=== PATIENT | female | born 1955 | race Hispanic/Latino ===

== ENCOUNTER → 2021-01-19 | Outpatient (CLI) | payer MEDICARE | END | disposition home or self-care (01) | LOC: RAH 08:24 | PROVIDERS: ATTEND Internal Medicine | DX: G31.9 Degenerative disease of nervous system, unspecified (principal) | CPT/HCPCS: 70450 ==

== ENCOUNTER → 2021-05-09 | Outpatient (CLI) | payer MEDICARE | END | disposition home or self-care (01) | LOC: RAH 12:40 | PROVIDERS: ATTEND Nurse Practitioner Family | DX: R22.1 Localized swelling, mass and lump, neck (principal) | CPT/HCPCS: 76536 ==

== ENCOUNTER → 2021-06-27 | Outpatient (CLI) | payer MEDICARE | END | disposition home or self-care (01) | LOC: RAH 13:42 | PROVIDERS: ATTEND Internal Medicine | DX: R22.1 Localized swelling, mass and lump, neck (principal) | CPT/HCPCS: 76536 ==

== ENCOUNTER → 2024-01-02 | Outpatient (CLI) | payer MEDICARE ==
[~2024-01-02] VITALS: Ht 165.1 cm; Wt 85.8 kg
[~2024-01-02] MED LIST: ACET-2521 PO; ATOR20TA65 PO; LISI2.5T13 PO; SEMA1PEN3 SQ; ceFAZolin SODIUM 2 GM VIAL IVPB SCH
[2024-01-02 11:23] VITALS: BP 127/73; PULSE 78; RESP 15; TEMP 98.1
[2024-01-02 11:30] LABS: BASOPHILS # (AUTO) 0.04 K/uL (0.00-0.20); BASOPHILS % (AUTO) 0.5 % (0.0-5.0); EOSINOPHILS # (AUTO) 0.26 K/uL (0.00-0.70); EOSINOPHILS % (AUTO) 3.5 % (0.0-8.0); IMMATURE GRANULOCYTE ABSOLUTE 0.02 K/uL (0-1); LYMPHOCYTES # (AUTO) 1.3 K/uL (1.0-4.8); MEAN CORPUSCULAR HEMOGLOBIN 29.4 pg (27.0-33.0); MEAN CORPUSCULAR HGB CONC 32.3 g/dL (32.0-36.0); MEAN CORPUSCULAR VOLUME 91.1 fL (79-99); MONOCYTES # (AUTO) 0.4 K/uL (0.1-1.0); MONOCYTES % (AUTO) 5.3 % (3.0-13.0); NEUTROPHILS # (AUTO) 5.3 K/uL (1.8-7.7); NEUTROPHILS % (AUTO) 72.4 % (40.0-77.0); PLATELET COUNT (AUTO) 202 K/uL (130-400); RED BLOOD CELL COUNT(AUTO) 4.28 MIL/uL (4.00-5.50); RED CELL DISTRIBUTION WIDTH 13.3 % (11.0-15.5); WHITE BLOOD COUNT (AUTO) 7.3 K/uL (4.8-10.8)
[2024-01-02 12:26] LABS: ADD UA MICROSCOPIC YES; APPEARANCE,URINE CLEAR (CLEAR); BILIRUBIN,URINE NEGATIVE (NEGATIVE); COLOR,URINE YELLOW (YELLOW); GLUCOSE, URINE (UA) 30 mg/dL (NEGATIVE); KETONES,URINE 5 mg/dL (NEGATIVE); LEUKOCYTE ESTERASE ,URINE 75 Leu/uL (NEGATIVE); NITRATE,URINE NEGATIVE (NEGATIVE); OCCULT BLOOD,URINE NEGATIVE (NEGATIVE); PH,URINE 5.5 (5.0-8.0); PROTEIN,URINE 20 mg/dL (NEGATIVE)
[2024-01-02 12:37] LABS: BACTERIA,URINE FEW /HPF (None Seen); MUCUS,URINE RARE LPF (None Seen); SQUAMOUS EPITHELIAL CELL,UR MOD /HPF (0-2)
== END | disposition home or self-care (01) ==
LOC: DAH 10:00 → EDSTATUS 14:00
PROVIDERS: ATTEND Student in an Organized Health Care Education/Training Program
DX: Z01.812 Encounter for preprocedural laboratory examination (principal); Z01.818 Encounter for other preprocedural examination; M17.0 Bilateral primary osteoarthritis of knee; M25.562 Pain in left knee; R26.89 Other abnormalities of gait and mobility; G89.29 Other chronic pain; M24.561 Contracture, right knee; M24.562 Contracture, left knee; I10 Essential (primary) hypertension; E11.9 Type 2 diabetes mellitus without complications; E78.5 Hyperlipidemia, unspecified; Z88.8 Allergy status to other drugs, medicaments and biological substances; Z90.710 Acquired absence of both cervix and uterus; Z79.899 Other long term (current) drug therapy; Z53.8 Procedure and treatment not carried out for other reasons
CPT/HCPCS: 36415; 81001; 84134; 85025; 86140; 87086; 87186; 87641

== ENCOUNTER 2024-03-05 05:51 | Observation (INO) | payer MEDICARE ==
--- NOTE | 2024-02-29 09:48 | EKG ---
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
[2024-02-29 09:58] VITALS: BP 162/67; PULSE 67; RESP 17; TEMP 97.5
[2024-02-29 10:17] LABS: BASOPHILS # (AUTO) 0.07 K/uL (0.00-0.20); EOSINOPHILS # (AUTO) 1.12 K/uL (0.00-0.70); EOSINOPHILS % (AUTO) 16.6 % (0.0-8.0); HEMATOCRIT 39.7 % (36-48); IMMATURE GRANULOCYTE ABSOLUTE 0.03 K/uL (0-1); LYMPHOCYTES % (AUTO) 30.2 % (21.0-51.0); MEAN CORPUSCULAR HEMOGLOBIN 29.1 pg (27.0-33.0); MEAN CORPUSCULAR HGB CONC 32.5 g/dL (32.0-36.0); MEAN CORPUSCULAR VOLUME 89.4 fL (79-99); MONOCYTES # (AUTO) 0.3 K/uL (0.1-1.0); NEUTROPHILS # (AUTO) 3.2 K/uL (1.8-7.7); NEUTROPHILS % (AUTO) 46.8 % (40.0-77.0); PLATELET COUNT (AUTO) 194 K/uL (130-400); RED BLOOD CELL COUNT(AUTO) 4.44 MIL/uL (4.00-5.50); RED CELL DISTRIBUTION WIDTH 13.1 % (11.0-15.5); WHITE BLOOD COUNT (AUTO) 6.8 K/uL (4.8-10.8)
[2024-02-29 10:31] LABS: ALBUMIN 3.3 g/dL (3.5-5.0); CREATININE 0.7 mg/dL (0.5-1.0)
[2024-02-29 10:40] LABS: APPEARANCE,URINE CLEAR (CLEAR); BILIRUBIN,URINE NEGATIVE (NEGATIVE); COLOR,URINE LIGHT-YELLOW (YELLOW); GLUCOSE, URINE (UA) NEGATIVE (NEGATIVE); KETONES,URINE NEGATIVE (NEGATIVE); LEUKOCYTE ESTERASE ,URINE NEGATIVE Leu/uL (NEGATIVE); NITRATE,URINE NEGATIVE (NEGATIVE); OCCULT BLOOD,URINE NEGATIVE (NEGATIVE); PROTEIN,URINE NEGATIVE (NEGATIVE); UROBILINOGEN,URINE 0.2 mg/dL (0.2-1.0)
[2024-02-29 10:45] LABS: INR <= 0.93 (0.85-1.15); PROTHROMBIN TIME 10.4 SEC (9.6-11.6)
[2024-02-29 10:46] LABS: PARTIAL THROMBOPLASTIN TIME 28.8 SEC (26.3-35.5)
[2024-02-29 10:53] LABS: ADD UA MICROSCOPIC NO
--- NOTE | 2024-03-03 13:59 | NUR ---
RE: EKG REPORTED EKG RESULTS TO DR ORTIZ, NO NEW ORDERS RECEIVED.
--- NOTE | 2024-03-03 15:56 | NUR ---
RE: LABS REPORTED URINE SENSITIVITY RESULTS TO DR NOGUERA, NO NEW ORDERS RECEIVED.
[~2024-03-05] VITALS: Ht 167.6 cm; Wt 86.1 kg
[2024-03-05] VITALS (23 sets, daily range): BP systolic 103–146; BP diastolic 50–74; PULSE 51–82; RESP 13–19; TEMP 96.9–97.9; O2SAT 100
[~2024-03-05 05:51] MED LIST changes: -ACET-2521 PO; -ATOR20TA65 PO; -ceFAZolin SODIUM 2 GM VIAL IVPB SCH
[2024-03-05] MEDS: FAMOTIDINE 20MG VIAL IV ONE (06:39)
[2024-03-05] MEDS: acetaMINOPHEN 100 ML ONE (06:39)
[2024-03-05] MEDS ORDERED: ROPivacaine 0.5% 5MG/ML 30ML ONE ×2 (06:40→06:51)
[2024-03-05] MEDS ORDERED: ketaMINE 50MG/ML SYRINGE 50 MG/ML DISP.SYRIN ONE (06:40)
[2024-03-05] MEDS ORDERED: proPOFol 10 MG/ML 20ML VIAL IV ONE (06:42)
[2024-03-05] MEDS ORDERED: LIDOCAINE HCL-MPF 2% 10ML AMP IJ ONE (06:42)
[2024-03-05] MEDS ORDERED: rocuRONium bROMide 10MG/1ML 5ML VL ONE ×2 (06:42→08:18)
[2024-03-05] MEDS ORDERED: FENTanyl CITRate PF 50 MCG/1 ML 2ML VIAL ONE (06:43)
[2024-03-05] MEDS ORDERED: ketOROlac 30MG VIAL (30MG/ML) ONE (06:51)
[2024-03-05] MEDS ORDERED: ondanSETRON 4MG INJ ONE (07:10)
[2024-03-05] MEDS ORDERED: dexaMETHasone SOD PHOSPHATE 10MG/ML 1ML VIAL ONE (07:10)
[2024-03-05] MEDS: TRANEXAMIC ACID 1000MG/10ML ONE (07:15)
[2024-03-05] MEDS: ceFAZolin SODIUM 2 GM VIAL ONE (07:22)
[2024-03-05] MEDS ORDERED: CYCLOBENZAPRINE HCL 10 MG TABLET PO PRN (07:30)
[2024-03-05] MEDS ORDERED: ondanSETRON 4MG INJ IVP PRN (07:30)
[2024-03-05] MEDS ORDERED: PoTASSium chl 10% ELIXIR 20MEQ 20 MEQ/15 ML UDCUP PO PRN (07:30)
[2024-03-05] MEDS ORDERED: PoTASSium chloRIDE 20MEQ ER 20 MEQ ERTAB PO PRN (07:30)
[2024-03-05] MEDS ORDERED: FERROUS FUMARATE 324 MG TABLET PO PRN (07:30)
[2024-03-05] MEDS ORDERED: ketOROlac 15MG/ML VIAL (15MG/ML) IV SCH (07:30)
[2024-03-05] MEDS ORDERED: ketOROlac 15MG/ML VIAL (15MG/ML) IV PRN (07:30)
[2024-03-05] MEDS ORDERED: PoTASSium chloRIDE 20MEQ/100ML 100 ML IV PRN (07:30)
[2024-03-05] MEDS ORDERED: CALCIUM CARB 500MG PO PRN (07:30)
[2024-03-05] MEDS: 0.9%NACL 1000ML 1,000 ML IV ONE (07:34)
[2024-03-05] MEDS ORDERED: dexmedeTOMIDine HCL 200 MCG/2 ML VIAL IV ONE (07:45)
[2024-03-05] MEDS ORDERED: GLYCOPYRROLATE 0.2 MG/ML 5 ML VIAL ONE (08:47)
[2024-03-05] MEDS ORDERED: NEOSTIGMINE METHYLSULFATE 1MG/ML IV ONE (08:47)
[2024-03-05] MEDS: doCUSate SODIUM 100 MG CAP PO SCH (09:00)
[2024-03-05] MEDS: ASPIRIN 325MG TAB PO SCH (09:00)
[2024-03-05] MEDS: polyETHYLene GLYCol 3350 17 GM POWD.PACK PO SCH (09:00)
[2024-03-05] MEDS: Semaglutide (Ozempic) 1 MG SQ SCH (09:00)
[2024-03-05] MEDS: LISINOPRIL 2.5 MG TABLET PO SCH (09:00)
--- NOTE | 2024-03-05 09:00 | NUR ---
New admission from PACU unit. patient post surgery of left TKA with Dr. Smith. ( view Initial physical Nursing assessment). No shortness of breath. Dorsalis pedis pulses present on both feet. Left knee has dressing clean and dry, wrapped with SANDY bandages.
--- NOTE | 2024-03-05 09:24 | OP ---
Operative Note: DATE OF PROCEDURE: 03/05/24 PREOPERATIVE DIAGNOSIS: Left knee osteoarthritis. POSTOPERATIVE DIAGNOSIS: Left knee osteoarthritis. PROCEDURE PERFORMED: Left knee total knee arthroplasty. SURGEON: Anna Smith MD CREDIT CONTROL OFFICER: Ishaan Hardy and Nidhi Cheung. ANESTHESIA: General with adductor canal block. ANESTHESIA: TRINITY Uribe. ESTIMATED BLOOD LOSS: 50cc. COMPLICATIONS: None. DRAINS: None. SPECIMENS REMOVED: resected bone. Not sent to pathology. IMPLANTS: [employer]hew Journey II BCS size 5 Oxinium femur, size 3 tibial base plate, 32 x 9 mm patella, 10 mm polyethylene STATEMENT OF MEDICAL NECESSITY: The patient is a 68-year-old female who suffers from left knee osteoarthritis failing conservative management. After discussion of the risks, benefits, and alternatives with the patient, they voluntarily agreed to undergo the aforementioned procedure. DESCRIPTION OF PROCEDURE: Patient was properly identified in the preoperative holding area. Surgical site marking was verified and surgery consent reviewed. The patient was then taken to the operating room and placed in supine position on the OR table. After induction of general anesthesia, preoperative antibiotics were given, all bony prominences were well-padded, and a well padded tourniquet was applied but not inflated at this time. The left lower extremity was then prepped and draped in usual sterile fashion. Surgical time out was done verifying correct surgery, side, site, and location to be performed. We then began the procedure by exsanguinating the limb using an Esmarch and inflating the tourniquet to 350 mmHg. At this point, we made an anterior midline incision using a 10 blade, coming down sharply the level of the fascia. Skin flaps were elevated medially and laterally. We then obtained a clean 10 blade and performed a standard medial parapatellar arthrotomy. We excised the infrapatellar fat pad. We performed our soft tissue releases off of the tibia. We transected the ACL and removed the anterior portion of the medial & lateral meniscus. We then brought the knee into hyperflexion with the patella everted. We used our entry reamer to enter the femoral canal. We then placed our intramedullary cutting guide for our distal femoral cutting block. We then performed our distal femoral osteotomy ensuring appropriate rotation and removed the bony wafer. We then removed these pins and block and then used jig 2 to size the distal femur with the after mentioned size found. We then placed our 5-in-1 cutting block in 4 degrees of external rotation and took our 5 cuts ensuring to protect the patellar tendon and the collateral ligaments. We then removed the cutting block and our bony fragments using a curved osteotome. We then placed our PCL retractor subluxating the tibia anteriorly. Using an extra medullary tibial cutting guide, we hung the block for our proximal tibial cut taking 2 mm off the more diseased portion. Prior to pinning this block in place, we ensured appropriate varus/valgus alignment and posterior slope similar to the [place] slope of the patient's knee. We then performed our proximal tibi al osteotomy and removed the bony wafer using Bovie electrocautery to release any remaining soft tissue attachments. We then used our tibial sizing paddle and checked once more for varus & valgus alignment and found this to be appropriate. At this point, we pinned our tibial paddle in place. We then removed the PCL retractor and subluxated the tibia posteriorly while we placed our femoral trial component. We then finished preparing the notch with the reamer and box chisel. The notch portion of the trial femoral component was then placed. A posterior stabilized polyethylene, size 9 trial was placed. The knee was then taken through range of motion and found to have stable full range of motion. We then placed a bump under the ankle and everted the patella to perform our freehand cut of the undersurface the patella. We then sized our patella and reamed to the lug holes for this. We placed our trial patellar component and begin to take the knee through range of motion. The patella had appropriate tracking. At this point we began removing our trial components and punched the tibial keel prior to removing our tibial trial component. Final components were opened and cement was mixed on the back table while we injected local cocktail in the posterior capsule. We then thoroughly irrigated out the bone and dried the bony surfaces. We cemented our tibial component in place ensuring to remove excess cement and placed our trial polyethylene. We then cemented our femoral component in place once again taking time to ensure excess cement was removed leg was brought into full extension to help squeeze the excess cement from around the femoral component. We then brought the knee back in a flexion to remove this portion of the cement at this point we placed the ankle in a bump thoroughly irrigated off the patellar component and cemented our patellar component in standard fashion again removing excess cement. While we waited for the cement to cure, we thoroughly irrigated out the wound with normal saline. Once our cement had cured, we took the knee through a range of motion and found full and stable range of motion. We then elected to use the size 10 polyethylene and removed our trial polyethylene. We impacted our final polyethylene component in place in standard fashion and took the knee through a range of motion check once more. This was satisfactory so we began to repair the arthrotomy using #1 Vicryl in interrupted [id number] fashion. Subcutaneous tissue was repaired using 2-0 Vicryl. Running subcuticular 3-0 Monocryl stitch with Dermabond placed over this for the skin. We then applied a foam barrier dressing and a pressure dressing consisting of 4 x 4's fluffs and an Amarjit wrap. The tourniquet was then deflated. Patient was awakened from anesthesia, and they were taken to the recovery room in stable condition. ANNA SMITH MD Mar 05, 2024 09:24
[2024-03-05] MEDS: ondanSETRON 4MG INJ ONE (09:33)
[2024-03-05] MEDS: MEPERIDINE-PF 25 MG/ML SYG ONE (09:33)
[2024-03-05] MEDS: ketOROlac 15MG/ML VIAL (15MG/ML) ONE (09:33)
--- NOTE | 2024-03-05 09:36 | HMCIMG ---
KNEE/PATELLA 1-2VWS LT HISTORY: Post surgery COMPARISON: None TECHNIQUE: 2 images of left knee were obtained status post surgery. FINDINGS: Total left knee replacement changes are seen. Alignment appears be grossly adequate. Soft tissue swelling and soft tissue emphysema is seen with postop changes. There is no acute displaced fracture or dislocation. Degenerative changes are seen. IMPRESSION: 1. Findings as described above.
[2024-03-05] MEDS: metoCLOPRAmide 10 MG/2 ML VIAL ONE (09:48)
[2024-03-05] MEDS: HYDROcodone/APAP 5/325 1 TAB TABLET PO PRN (10:38)
[2024-03-05] MEDS: GABApentin 100 MG CAPSULE PO SCH (14:00)
[2024-03-05] MEDS: traMADol HCL 50 MG TABLET PO PRN (14:37)
[2024-03-05] MEDS: 0.9%NACL 1000ML 1,000 ML IV SCH (16:38)
[2024-03-05] MEDS: ceFAZolin SODIUM 1 GM VIAL IVP SCH (17:08)
--- NOTE | 2024-03-05 17:49 | NUR ---
[facility] CM MET WITH PT ASSESSMENT DONE. PATIENT IS INDEPENDENT PRIOR TO SURGERY, SON LIVES W/PT AT HOME. PATIENT HAS A ROLLATOR WALKER, TOILET RISER SEAT, NEBULIZER MACHINE. DENIES ANY OTHER EQUIPMENT/SERVICES. FEELS SAFE TO GO BACK HOME, STILL DRIVE, SON ABLE TO ASSIST WITH TRANSPORTATION AND NEEDS NECESSARY. DISCUSSED MD RECOMMENDATIONS FOR SHORT TERM REHAB AT [facility], GIVEN IN NETWORK FACILITIES, PT AGREEABLE, CONSENT SIGNED [facility] FOR [facility]. GAP [facility] ONCE APPROVED. CM SENT ORDER, CLINICALS, PT, PASRR TO [facility] AND [facility] VIA SECURE EMAIL. CM SPOKE TO [facility], WILL COME EVALUATE PT FIRST THING TOMORROW MORNING, AWARE PT WILL NEED FACILITY VAN FOR TRANSPORT ONCE PT READY TO DC. PT PENDING APPROVAL AND ACCEPTANCE. PRIMARY NURSE VALENTINA MADE AWARE. DR NOGUERA UPDATED. CM TO CONTINUE TO FOLLOW UP. Addendum: 03/05/24 at 1752 by REECE CABALLERO LVN Amended: Links added.
[2024-03-05] MEDS ORDERED: ceFAZolin SODIUM 2 GM VIAL IVP SCH (19:00)
[2024-03-06] VITALS (7 sets, daily range): BP systolic 121–163; BP diastolic 58–72; PULSE 75–119; RESP 16–46; TEMP 98–99; O2SAT 95–98
[2024-03-06] MEDS: ceFAZolin SODIUM 2 GM VIAL IVP SCH (01:00)
[2024-03-06 05:22] LABS: HEMATOCRIT 31.5 % (36-48); MEAN CORPUSCULAR HEMOGLOBIN 29.4 pg (27.0-33.0); MEAN CORPUSCULAR HGB CONC 32.1 g/dL (32.0-36.0); MEAN CORPUSCULAR VOLUME 91.8 fL (79-99); RED BLOOD CELL COUNT(AUTO) 3.43 MIL/uL (4.00-5.50); RED CELL DISTRIBUTION WIDTH 13.3 % (11.0-15.5); WHITE BLOOD COUNT (AUTO) 9.7 K/uL (4.8-10.8)
[2024-03-06 05:38] LABS: CREATININE 0.8 mg/dL (0.5-1.0); POTASSIUM 3.8 mmol/L (3.5-5.1)
--- NOTE | 2024-03-06 07:40 | PN ---
Ortho postop day one. Patient is awake alert and oriented. Reporting mild to moderate pain. She is out of bed seated in the chair enjoying her breakfast. Denies any chest pain. Denies any shortness of breath. Denies any dizziness. Vital signs have remained stable. She is afebrile. Laboratory results reviewed. Noted to have a drop in hemoglobin and hematocrit as expected after total knee arthroplasty. Currently patient is asymptomatic and we will address per protocol as necessary. Voiding on her own without difficulty. Amarjit bandage has been removed from the operative site and the dressing to the anterior joint is intact. The gastrocnemius a soft nontender negative Homans. Distal neurovascular exam intact. She has alternating extension and flexion with a footstool while seated in the chair. Performing incentive spirometry as instructed. Operative findings discussed with the patient. The patient progress yesterday well ambulating 30 ft in the morning and 30 ft in the afternoon. Pending further physical therapy. Patient appears medically stable once approved to [facility] she can be discharged. Assessment: Status post left total knee arthroplasty. Asymptomatic acute postoperative blood loss anemia. Plan: Continue with Dr. Smith's total knee arthroplasty protocol and discharge planning. Asymptomatic acute postoperative blood loss anemia addressed with protocol. Vitals/Labs Vital Signs Date Time Temp Pulse Resp B/P (MAP) Pulse Ox O2 Delivery O2 Flow Rate FiO2 03/06/24 04:00 98.4 75 19 121/59 97 Room Air 03/05/24 20:00 2 28 Laboratory Tests 03/06/24 05:06 Medications Current Medications Cefazolin Sodium 2 gm STK-MED ONCE .ROUTE Last administered on 03/05/24at 07:22; Start 03/05/24 at 06:29; Stop 03/05/24 at 06:34; Status DC Sodium Chloride 1,000 ml @ As Directed STK-MED ONCE IV Last administered on 03/05/24at 07:34; Start 03/05/24 at 06:29; Stop 03/05/24 at 06:34; Status DC Acetaminophen 100 ml @ As Directed STK-MED ONCE .ROUTE; Start 03/05/24 at 06:39; Stop 03/05/24 at 06:39; Status DC Famotidine 20 mg STK-MED ONCE IV; Start 03/05/24 at 06:39; Stop 03/05/24 at 06:39; Status DC Ropivacaine 150 mg STK-MED ONCE .ROUTE; Start 03/05/24 at 06:40; Stop 03/05/24 at 06:40; Status DC Ketamine HCl 50 mg STK-MED ONCE .ROUTE; Start 03/05/24 at 06:40; Stop 03/05/24 at 06:41; Status DC Lidocaine HCl 1 ml STK-MED ONCE IJ; Start 03/05/24 at 06:42; Stop 03/05/24 at 06:42; Status DC Propofol 200 mg STK-MED ONCE IV; Start 03/05/24 at 06:42; Stop 03/05/24 at 06:42; Status DC Rocuronium [place] 50 mg STK-MED ONCE .ROUTE; Start 03/05/24 at 06:42; Stop 03/05/24 at 06:42; Status DC Fentanyl Citrate 100 mcg STK-MED ONCE .ROUTE; Start 03/05/24 at 06:43; Stop 03/05/24 at 06:43; Status DC Tranexamic Acid 1,000 mg STK-MED ONCE .ROUTE Last administered on 03/05/24at 07:15; Start 03/05/24 at 06:50; Stop 03/05/24 at 06:50; Status DC Ketorolac Tromethamine 30 mg STK-MED ONCE .ROUTE; Start 03/05/24 at 06:51; Stop 03/05/24 at 06:51; Status DC Ropivacaine 150 mg STK-MED ONCE .ROUTE; Start 03/05/24 at 06:51; Stop 03/05/24 at 06:52; Status DC Ondansetron HCl 4 mg STK-MED ONCE .ROUTE; Start 03/05/24 at 07:10; Stop 03/05/24 at 07:12; Status DC Dexamethasone Sodium Phosphate 10 mg STK-MED ONCE .ROUTE; Start 03/05/24 at 07:10; Stop 03/05/24 at 07:12; Status DC Sodium Chloride 1,000 ml @ 100 mls/hr Q10H IV Last administered on 03/05/24at 16:38; Start 03/05/24 at 07:30; Stop 03/06/24 at 07:29; Status DC Polyethylene Glycol 17 gm DAILY PO; Start 03/05/24 at 09:00; Stop 04/04/24 at 08:59 Bisacodyl 10 mg DAILY PRN RC; Start 03/08/24 at 07:30; Stop 04/07/24 at 07:29 Aspirin 325 mg BID PO Last administered on 03/05/24at 20:36; Start 03/05/24 at 09:00; Stop 04/04/24 at 08:59 Ketorolac Tromethamine 15 mg Q6H PRN IV; Start 03/05/24 at 07:30; Stop 03/05/24 at 07:37; Status DC Ferrous Fumarate 324 mg DAILY PRN PO; Start 03/05/24 at 07:30; Stop 04/04/24 at 07:29 Ondansetron HCl 4 mg Q6H PRN IVP; Start 03/05/24 at 07:30; Stop 04/04/24 at 07:29 Calcium Carbonate 500 mg Q12H PRN PO; Start 03/05/24 at 07:30; Stop 04/04/24 at 07:29 Cefazolin Sodium 2 gm Q8H IVP Last administered on 03/05/24at 17:08; Start 03/05/24 at 12:30; Stop 03/05/24 at 18:49; Status DC Cyclobenzaprine HCl 5 mg Q8H PRN PO; Start 03/05/24 at 07:30; Stop 04/04/24 at 07:29 Gabapentin 100 mg TID PO Last administered on 03/05/24at 20:36; Start 03/05/24 at 09:00; Stop 04/04/24 at 08:59 Ketorolac Tromethamine 15 mg Q8H IV; Start 03/05/24 at 07:30; Stop 03/05/24 at 07:37; Status DC Docusate Sodium 100 mg BID PO Last administered on 03/05/24at 20:35; Start 03/05/24 at 09:00; Stop 04/04/24 at 08:59 Potassium Chloride 100 ml @ 100 mls/hr AD PRN IV; Start 03/05/24 at 07:30; Stop 04/04/24 at 07:29 Potassium Chloride 20 meq AD PRN PO; Start 03/05/24 at 07:30; Stop 04/04/24 at 07:29 Potassium Chloride 20 meq AD PRN PO; Start 03/05/24 at 07:30; Stop 04/04/24 at 07:29 Tramadol HCl 50 mg Q6H PRN PO Last administered on 03/05/24at 14:37; Start 03/05/24 at 07:30; Stop 03/10/24 at 07:29 Acetaminophen/ Hydrocodone Bitart Q4H PRN PO Last administered on 03/06/24at 06:11; Start 03/05/24 at 07:30; Stop 03/10/24 at 07:29 Lisinopril 2.5 mg DAILY PO; Start 03/05/24 at 09:00; Stop 04/04/24 at 08:59 Home Med Semaglutide (Ozempic) 1 MG QWEEK SQ; Start 03/05/24 at 09:00; Stop 04/04/24 at 08:59 Dexmedetomidine HCl 200 mcg STK-MED ONCE IV; Start 03/05/24 at 07:45; Stop 03/05/24 at 07:45; Status DC Rocuronium [place] 50 mg STK-MED ONCE .ROUTE; Start 03/05/24 at 08:18; Stop 03/05/24 at 08:19; Status DC Glycopyrrolate 1 mg STK-MED ONCE .ROUTE; Start 03/05/24 at 08:47; Stop 03/05/24 at 08:47; Status DC Neostigmine Methylsulfate 10 mg STK-MED ONCE IV; Start 03/05/24 at 08:47; Stop 03/05/24 at 08:47; Status DC Ketorolac Tromethamine 15 mg STK-MED ONCE .ROUTE Last administered on 03/05/24at 09:33; Start 03/05/24 at 09:21; Stop 03/05/24 at 09:21; Status DC Meperidine HCl 25 mg STK-MED ONCE .ROUTE Last administered on 03/05/24at 09:33; Start 03/05/24 at 09:26; Stop 03/05/24 at 09:26; Status DC Ondansetron HCl 4 mg STK-MED ONCE .ROUTE Last administered on 03/05/24at 09:33; Start 03/05/24 at 09:29; Stop 03/05/24 at 09:30; Status DC Metoclopramide HCl 10 mg STK-MED ONCE .ROUTE Last administered on 03/05/24at 09:48; Start 03/05/24 at 09:41; Stop 03/05/24 at 09:42; Status DC Cefazolin Sodium 2 gm Q8H IVP; Start 03/05/24 at 19:00; Stop 03/05/24 at 18:50; Status DC Cefazolin Sodium 2 gm Q8H IVP Last administered on 03/06/24at 01:00; Start 03/06/24 at 01:00; Stop 03/06/24 at 01:01; Status DC JAMES BOONE NP Mar 06, 2024 07:40
--- NOTE | 2024-03-06 11:30 | NUR ---
BLOOD GLUCOSE 193. NO COVERAGE NEEDED AT THIS TIME.
--- NOTE | 2024-03-06 16:30 | NUR ---
BLOOD GLUCOSE 180. NO COVERAGE NEEDED AT THIS TIME.
[2024-03-07 03:51] VITALS: BP 141/61; PULSE 95; RESP 17; TEMP 98.2
[2024-03-07 08:00] VITALS: BP 153/76; PULSE 100; RESP 18; TEMP 98.3
[2024-03-07 12:00] VITALS: BP 146/76; PULSE 104; RESP 18; TEMP 99.7
[2024-03-07] MEDS ORDERED: CYCL-309 PO (12:26)
[2024-03-07] MEDS ORDERED: ASPI-1026 PO (12:26)
[2024-03-07] MEDS ORDERED: GABA100C PO (12:26)
[2024-03-07] MEDS ORDERED: DOCU-116 PO (12:26)
[2024-03-07] MEDS ORDERED: HYDR-4060 PO (12:26)
--- NOTE | 2024-03-07 12:30 | DS ---
Discharge Summary Hospital Course Summary: The patient was admitted to the hospital postoperatively on 03/05/2024 after undergoing left total knee arthroplasty. They did well with routine postoperative pain control. They worked well with physical therapy. She developed some acute blood loss anemia but remained asymptomatic from this. The hospital course was otherwise uncomplicated. They were subsequently able to be discharged on postoperative day 2 once discharge arrangements were made with [facility]. Director Government(s): None Procedure(s): Left total knee arthroplasty, 03/05/2024 Assessment/Plan: ASSESSMENT: POD 2 s/p L TKA PLAN: See discharge instructions Discharge Instructions: Begin working with physical therapy at the facility. Dressing may be removed 03/08/2024 and left open to air. Showers ok allowing soap and water to run over the wound. Pat dry. Do not submerge wound in tub/pool. Do not apply ointments. Do not apply Betadine. Do not apply peroxide. Ice packs to decrease pain/swelling. Prescriptions have been sent to the pharmacy: *[place] 5/325mg 1-2 tab every 6 hours as needed for severe pain. (please call for refills) Cyclobenzaprine 5mg 1 tab every 8 hours as needed for muscle spasm pain. Gabapentin 100mg 1 tab every 8 hours (may discontinue if drowsy). Colace 100mg 1 tab orally twice a day as needed for constipation. Aspirin 325mg for 30 days to prevent blood clots. Call for a follow-up appointment in 2-3 weeks at [facility]. Home Medications: Active Scripts Hydrocodone/Acetaminophen (Hydrocodon-Acetaminophen 5-325) 5 Mg-325 Mg Tablet, 1-2 TAB PO Q6HPRN PRN for MODERATE/SEVERE PAIN LEVEL, #56 TAB 0 Refills Prov:SEKOU NOGUERA MD 03/07/24 Reported Medications Semaglutide (Ozempic) 1 Mg/0.75 Ml (4 Mg/3 Ml) Pen.injctr, 1 MG SQ QWEEK for 30 Days, #3 ML 0 Refills 01/02/24 Lisinopril (Lisinopril) 2.5 Mg Tablet, 1 TAB PO DAILY for 30 Days, #30 TAB 0 Refills 01/02/24 Discontinued Reported Medications Acetaminophen (Arthritis Pain Relief) 650 Mg Tablet.er, 1300 MG PO AD PRN for PAIN, TAB 01/02/24 Atorvastatin Calcium (Atorvastatin Calcium) 20 Mg Tablet, 1 TAB PO DAILY for 30 Days, #30 TAB 0 Refills 01/02/24 SEKOU NOGUERA MD Mar 07, 2024 12:29
--- NOTE | 2024-03-07 15:14 | NUR ---
Full report and review of patients plan of care given to Mayur Mcdaniel RN at [facility]. All questions regarding patient care have been answered with opportunity for questions to be asked. Mayur duffy will send transportation for patient as soon as they become available. Patient updated. and remains in visibly stable conditions.
[2024-03-08] MEDS ORDERED: BisaCODYL 10 MG SUPP.RECT RC PRN (07:30)
== END 2024-03-07 17:40 ==
LOC: DAH 05:51 → DAHIP 05:52 → 4DH 10:05
PROVIDERS: ADMIT Student in an Organized Health Care Education/Training Program; ATTEND Student in an Organized Health Care Education/Training Program
DX: M17.12 Unilateral primary osteoarthritis, left knee (principal); M25.562 Pain in left knee; D62 Acute posthemorrhagic anemia; I10 Essential (primary) hypertension; E78.5 Hyperlipidemia, unspecified; E11.9 Type 2 diabetes mellitus without complications; E66.9 Obesity, unspecified; Z68.39 Body mass index [BMI] 39.0-39.9, adult; Z79.899 Other long term (current) drug therapy; Z98.890 Other specified postprocedural states
CPT/HCPCS: 82040; 80048 ×2; 85025; 85610; 85730; 87086 ×2; 87186; 84134; 86140; 81003; 36415 ×2; 93005; 87641; 27447; 64447; 96365; 82948 ×11; 73560; 97161; 97116 ×6; 97530 ×6; 96366; 85027; G0378 ×53; A4663; J3490 ×8; J3010; J0690 ×3; J1100; J7030; J2704; J2405 ×2; J1885 ×2; J2710; J2175; J2765; J2795 ×2; C1713 ×2; C1776 ×2; A4649 ×2; A4930; A6255; A5120; A4215; A4223 ×2; A4222; A4221; A4216

== ENCOUNTER 2024-11-21 05:58 | Day surgery (SDC) | payer MEDICARE ==
--- NOTE | 2024-11-19 10:59 | EKG ---
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
[2024-11-19 11:04] LABS: IMMATURE GRANULOCYTE ABSOLUTE 0.02 K/uL (0-1); NUCLEATED RED BLOOD CELLS 0.0 % (0.0-0.19); PLATELET COUNT (AUTO) 185 K/uL (130-400); RED BLOOD CELL COUNT(AUTO) 4.40 MIL/uL (4.00-5.50); RED CELL DISTRIBUTION WIDTH 13.3 % (11.0-15.5); WHITE BLOOD COUNT (AUTO) 6.3 K/uL (4.8-10.8)
[2024-11-19 11:12] LABS: CREATININE 0.7 mg/dL (0.5-1.0); GLOMERULAR FILTR. RATE CALC 93.0 mL/min (>90); GLUCOSE,RANDOM 126.0 mg/dL (70-105); SODIUM SERUM 138.0 mmol/L (136-145); UREA NITROGEN, BLOOD 17.0 mg/dL (7-18)
[2024-11-19 11:16] VITALS: BP 144/71; PULSE 71; RESP 18; TEMP 97.4
[2024-11-19 11:17] LABS: INR 1.0 (0.85-1.15)
[2024-11-21] VITALS (16 sets, daily range): BP systolic 119–143; BP diastolic 55–71; PULSE 51–67; RESP 12–18; TEMP 96.8–97.7
[~2024-11-21] VITALS: Ht 165.1 cm; Wt 82.6 kg
[~2024-11-21 05:58] MED LIST changes: +ATOR20TA65 PO; +MELO-108 PO
[2024-11-21] MEDS ORDERED: 0.9%NACL 1000ML 1,000 ML IV ONE (06:13)
[2024-11-21] MEDS ORDERED: LIDOCAINE HCL MPF 1% 5ML VIAL ONE (07:27)
[2024-11-21] MEDS ORDERED: MIDAZOLAM HCL 1 MG/ML 2ML VIAL ONE (07:28)
[2024-11-21] MEDS ORDERED: ACET-2079 PO (08:24)
--- NOTE | 2024-11-21 11:15 | OP ---
Operative Note: DATE OF PROCEDURE: 11/21/24 SURGEON: SEKOU NOGUERA MD ACOUSTIC WARFARE ANALYST: Nidhi Cat ANESTHESIA: General ANESTHESIOLOGIST/GANG SAWYER: Mellissa Stallings PREOPERATIVE DIAGNOSIS: Left patellar clunk POSTOPERATIVE DIAGNOSIS: Left patellar clunk PROCEDURE: Left knee arthroscopy with partial synovectomy ESTIMATED BLOOD LOSS: 5 cc INDICATIONS: 69-year-old female status post left total knee arthroplasty who did well for quite a length of the time. She returned to clinic with complaints of popping in the knee when she flexes and extends that was painful when it would occur. After discussion of the risks, benefits, and alternatives, she voluntarily agreed to undergo the aforementioned procedure. FINDINGS: Hypertrophic synovium between femoral and polyethylene both of the tibia and patella surfaces. DESCRIPTION OF PROCEDURE: Patient was properly identified in the preoperative holding area. Surgical site marking was verified and surgery consent reviewed. The patient was then taken to the operating room and placed in supine position on the OR table. After induction of general anesthesia, preoperative antibiotics were given, all bony prominences were well-padded, and a well padded tourniquet was applied but not inflated at this time. The left lower extremity was then prepped and draped in usual sterile fashion. Surgical timeout was done verifying correct surgery, side, site, and location to be performed. We then began the procedure by making a standard anterolateral portal with an 11 blade and inserted our arthroscope through here. We made our anterior medial portal under direct visualization using spinal needle for localization. We then inserted our probe and performed our diagnostic arthroscopy with the above mentioned findings. At this point we inserted shaver and performed our partial synovectomy of the anterior aspect of the knee. Placing the knee in extension we were then able to perform further synovectomy in the peripatellar region. We then inserted the shaver from the lateral side and further debrided synovium. Once we were happy with our debridement, we then thoroughly irrigated out the wound with normal saline. We removed as much fluid from the knee as possible. We then injected local anesthetic within the capsule of the joint as well as around the portal sites. Our portal sites were then repaired using 3-0 nylon in simple fashion. Sterile dressing was then applied consisting of Xeroform, 4 x 4's, ABD, cast padding, and an Amarjit wrap. The patient was then awakened from anesthesia and taken to recovery room in stable condition. SEKOU NOGUERA MD Nov 21, 2024 11:15
--- NOTE | 2024-11-21 12:00 | NUR ---
BOTH PT AND SON GIVEN VERBAL AND WRITTEN DISCHARGE INSTRUCTIONS IV REMOVED SITE ASYMPTOMATIC. PT TAKEN OUT VIA WHEELCHAIR SON DRIVING.
== END 2024-11-21 12:00 | disposition home or self-care (01) ==
LOC: DAH 05:58
PROVIDERS: ATTEND Student in an Organized Health Care Education/Training Program
DX: M25.862 Other specified joint disorders, left knee (principal); M25.562 Pain in left knee; I10 Essential (primary) hypertension; E78.5 Hyperlipidemia, unspecified; E11.9 Type 2 diabetes mellitus without complications; M17.0 Bilateral primary osteoarthritis of knee; Z90.710 Acquired absence of both cervix and uterus; Z88.8 Allergy status to other drugs, medicaments and biological substances; Z79.01 Long term (current) use of anticoagulants; Z79.899 Other long term (current) drug therapy
CPT/HCPCS: 80048; 85025; 85610; 85730; 36415; 93005; 29875; 82948; J1100; A4663; A4649 ×3; J3010; J2270; J7030; J0665 ×2; J3490 ×2; J0169 ×2; J2250; J2704; J2405; J2371; J0690 ×2; A6223; A4930; A5120; A4215; A4213; A4222; A4221; A4216; A6450; A4223 ×2